=== PATIENT | female | born 1990 | race Asian ===

== ENCOUNTER 2016-06-29 10:09 | Inpatient (IN) | payer MEDICAID ==
[~2016-06-29] VITALS: Ht 160 cm; Wt 54.4 kg
[2016-06-29] MEDS ORDERED: TAPAZOLE5 M1 PO (10:22)
[2016-06-29] MEDS ORDERED: INDERAL10 MG PO (10:22)
[2016-06-29 10:30] VITALS: BP 132/86
[2016-06-29 11:13] LABS: BASOPHILS % (AUTO) 0.5 % (0.0-2.0); LYMPHOCYTES % (AUTO) 13.3 % (20.0-45.0); MEAN CORPUSCULAR HEMOGLOBIN 19.3 PG (27.0-31.0); MEAN CORPUSCULAR HGB CONC 29.9 G/DL (32.0-36.0); MEAN CORPUSCULAR VOLUME 64 FL (80-99); MONOCYTES % (AUTO) 3.5 % (1.0-10.0); NEUTROPHILS % (AUTO) 82.7 % (45.0-75.0); PLATELET COUNT 352 K/UL (150-450); RED BLOOD COUNT 6.38 M/UL (4.20-5.40); RED CELL DISTRIBUTION WIDTH 12.9 % (11.6-14.8); WHITE BLOOD COUNT 9.5 K/UL (4.8-10.8)
[2016-06-29 11:13] LABS: APPEARANCE,URINE CLEAR; KETONES,URINE NEGATIVE (NEGATIVE); LEUKOCYTE ESTERASE ,URINE 1+ (NEGATIVE); NITRITE,URINE NEGATIVE (NEGATIVE); PH,URINE 8 (4.5-8.0); PROTEIN,URINE NEGATIVE (NEGATIVE); UROBILINOGEN,URINE NORMAL MG/DL (0.0-1.0)
[2016-06-29 11:21] LABS: BACTERIA,URINE FEW /HPF; RBC,URINE 0-2 /HPF (0 - 2); SQUAMOUS EPITHELIAL CELL,UR FEW /LPF (NONE/OCC)
[2016-06-29 11:27] LABS: ALANINE AMINOTRANSFERASE 11 U/L (3-33); ALBUMIN/GLOBULIN RATIO 1.3 (1.0-2.7); ANION GAP 18 (5-15); ASPARTATE AMINO TRANSFERASE 14 U/L (5-40); CARBON DIOXIDE 23 mEQ/L (20-30); CHLORIDE 96 mEQ/L (98-107); CREATININE 0.6 mg/dL (0.5-0.9); GLOMERULAR FILTRATION RATE > 60 mL/min (>60); HEMOLYSIS 1; LIPASE 17 U/L (< 60); SODIUM 137 mEQ/L (135-145); TOTAL PROTEIN 7.9 g/dL (6.6-8.7); TROPONIN I < 0.30 ng/mL (<=0.30)
[2016-06-29 11:30] LABS: PROTHROMBIN TIME 10.2 SEC (9.30-11.50)
[2016-06-29 11:38] LABS: CKMB < 1.5 ng/mL (< 3.8); THYROID STIMULATING HORMONE 0.005 uIU/mL (0.300-4.500)
[2016-06-29] MEDS ORDERED: Propranolol 1mg/ml Inj IVP ONE (12:00)
--- NOTE | 2016-06-29 12:18 | Diagnostic Imaging Report ---
Indication: SOB Technique: One view of the chest Comparison: none Findings: Lungs and pleural spaces are clear. Heart size is normal. Impression: No acute process
--- NOTE | 2016-06-29 12:46 | History & Physical ---
History and Physical History & Physicial HP dictated # [id number] ETHEL GARIBAY Jun 29, 2016 12:46
[2016-06-29 12:53] VITALS: BP 113/78
--- NOTE | 2016-06-29 13:24 | Emergency Room Report ---
History of Present Illness General Chief Complaint: General Complaint Source: Patient, Family Member Present Illness HPI Patient present with complaints of chest pain and shortness of breath palpitation sensation since last night Patient has a known thyroid disease with hyperthyroid disease patient is on 2 different medications However reports that since last night was having a palpitation sensation Patient has not had any other procedures performed Reports being diagnosed about 3-4 years ago At this time is asymptomatic while at rest Denies any chest pain currently Denies any vomiting or diarrhea denies any pleurisy denies any recent travel Allergies: Coded Allergies: No Known Allergies (Unverified , 06/29/16) Patient History Past Medical History: see triage record Pertinent Family History: none Last Menstrual Period: 06/06/16 Reviewed Nursing Documentation: PMH: Agreed, PSxH: Agreed Nursing Documentation-PMH Past Medical History: No History, Except For Hx Cardiac Problems: Yes - hyperthyroid Review of Systems All Other Systems: negative except mentioned in HPI Physical Exam Vital Signs Date Time Temp Pulse Resp B/P Pulse Ox O2 Delivery O2 Flow Rate FiO2 06/29/16 10:13 97.2 147 22 162/103 100 Room Air Sp02 EP Interpretation: reviewed, normal General Appearance: well appearing, no apparent distress Head: normocephalic, atraumatic Eyes: bilateral eye EOMI, bilateral eye PERRL ENT: hearing grossly normal, normal pharynx, TMs + canals normal, uvula midline Neck: full range of motion, supple, no meningismus, no bony tend Respiratory: lungs clear, normal breath sounds, no rhonchi, no respiratory distress, no retraction, no accessory muscle use Cardiovascular #1: normal peripheral pulses, no edema, no gallop, no JVD, no murmur, tachycardia Gastrointestinal: normal bowel sounds, non tender, soft, no mass, no organomegaly, non-distended, no guarding, no hernia, no pulsatile mass, no rebound Genitourinary: no CVA tenderness Musculoskeletal: normal inspection Neurologic: oriented x3, responsive, hospitalist III-XII nml as tested, motor strength/ tone normal, sensory intact Psychiatric: mood/affect normal Skin: normal color, no rash, warm/dry, palpation normal Lymphatic: normal inspection, no adenopathy Medical Decision Making Diagnostic Impression: Primary Impression: Thyroid storm ER Course Multiple differentials considered Patient's complex requiring blood work and imaging Consideration for cardiac, thyroid disease considered Patient's a thyroid level is elevated Patient was provided with beta sabine at this time No definitive sign of a full-blown thyroid storm currently however patient, is fairly tachycardic and short of breath and requires admission for further care I do not feel the patient's findings were in line with pulmonary embolism and further CT angio has not been performed in the ER Labs Test 06/29/16 10:30 06/29/16 10:47 White Blood Count 9.5 K/UL (4.8-10.8) Red Blood Count 6.38 M/UL (4.20-5.40) Hemoglobin 12.3 G/DL (12.0-16.0) Hematocrit 41.1 % (37.0-47.0) Mean Corpuscular Volume 64 FL (80-99) Mean Corpuscular Hemoglobin 19.3 PG (27.0-31.0) Mean Corpuscular Hemoglobin Concent 29.9 G/DL (32.0-36.0) Red Cell Distribution Width 12.9 % (11.6-14.8) Platelet Count 352 K/UL (150-450) Mean Platelet Volume 6.0 FL (6.5-10.1) Neutrophils (%) (Auto) 82.7 % (45.0-75.0) Lymphocytes (%) (Auto) 13.3 % (20.0-45.0) Monocytes (%) (Auto) 3.5 % (1.0-10.0) Eosinophils (%) (Auto) 0.0 % (0.0-3.0) Basophils (%) (Auto) 0.5 % (0.0-2.0) Prothrombin Time 10.2 SEC (9.30-11.50) Prothromb Time International Ratio 1.0 (0.9-1.1) Activated Partial Thromboplast Time 27 SEC (23-33) Sodium Level 137 mEQ/L (135-145) Potassium Level 4.0 mEQ/L (3.4-4.9) Chloride Level 96 mEQ/L (98-107) Carbon Dioxide Level 23 mEQ/L (20-30) Anion Gap 18 (5-15) Blood Urea Nitrogen 8 mg/dL (7-23) Creatinine 0.6 mg/dL (0.5-0.9) Estimat Glomerular Filtration Rate > 60 mL/min (>60) Glucose Level 105 mg/dL (74-106) Calcium Level 10.0 mg/dL (8.6-10.2) Total Bilirubin 0.3 mg/dL (0.0-1.2) Aspartate Amino Transf (AST/SGOT) 14 U/L (5-40) Alanine Aminotransferase (ALT/SGPT) 11 U/L (3-33) Alkaline Phosphatase 87 U/L (35-104) Total Creatine Kinase 91 U/L (26-140) Creatine Kinase MB < 1.5 ng/mL (< 3.8) Creatine Kinase MB Relative Index Troponin I < 0.30 ng/mL (<=0.30) Pro-B-Type Natriuretic Peptide 66 pg/mL (0-125) Total Protein 7.9 g/dL (6.6-8.7) Albumin 4.6 g/dL (3.5-5.2) Globulin 3.3 g/dL Albumin/Globulin Ratio 1.3 (1.0-2.7) Lipase 17 U/L (< 60) Thyroid Stimulating Hormone (TSH) 0.005 uIU/mL (0.300-4.500) Free Thyroxine 3.30 ng/dL (0.86-1.85) Urine Color Pale yellow Urine Appearance Clear Urine pH 8 (4.5-8.0) Urine Specific [place] 1.010 (1.005-1.035) Urine Protein Negative (NEGATIVE) Urine Glucose (UA) Negative (NEGATIVE) Urine Ketones Negative (NEGATIVE) Urine Occult Blood Negative (NEGATIVE) Urine Nitrite Negative (NEGATIVE) Urine Bilirubin Negative (NEGATIVE) Urine Urobilinogen Normal MG/DL (0.0-1.0) Urine Leukocyte Esterase 1+ (NEGATIVE) Urine RBC 0-2 /HPF (0 - 2) Urine WBC 2-4 /HPF (0 - 2) Urine Squamous Epithelial Cells Few /LPF (NONE/OCC) Urine Bacteria Few /HPF (NONE) Urine HCG, Qualitative Negative Urine Opiates Screen Negative (NEGATIVE) Urine Barbiturates Screen Negative (NEGATIVE) Phencyclidine (PCP) Screen Negative (NEGATIVE) Urine Amphetamines Screen Negative (NEGATIVE) Urine Benzodiazepines Screen Negative (NEGATIVE) Urine Cocaine Screen Negative (NEGATIVE) Urine Marijuana (THC) Screen Negative (NEGATIVE) EKG Diagnostic Results Rate: tachycardiac Rhythm: other ST Segments: no acute changes Rhythm Strip Diag. Results EP Interpretation: yes Rate: 105 Rhythm: no PVC's, no ectopy, other - sinus tach Chest X-Ray Diagnostic Results EP Interpretation: Yes Findings: no consolidation, no effusion, no pneumothorax Number of Views: 1 Last Vital Signs Date Time Temp Pulse Resp B/P Pulse Ox O2 Delivery O2 Flow Rate FiO2 06/29/16 12:58 97.2 88 17 113/78 100 Room Air Status: improved Disposition: ADMITTED INPATIENT Condition: Serious Referrals: NOT CHOSEN IPA/,REFERRING (PCP) MARY ANNE WYNN D.O. Jun 29, 2016 13:24
[2016-06-29 13:46] VITALS: BP 118/77
[2016-06-29] MEDS: Methimazole 5mg tab ORAL SCH (14:21)
[2016-06-29] MEDS: Propranolol 10mg tab ORAL SCH ×2 (14:22→22:36)
[2016-06-29 16:00] VITALS: BP 113/65
[2016-06-29] MEDS ORDERED: Morphine Sulfate 4mg/ml Inj IVP PRN (17:15)
[2016-06-29] MEDS ORDERED: Morphine Sulfate 2mg/ml Inj IVP PRN (17:15)
--- NOTE | 2016-06-29 19:29 | History and Physical Report ---
DATE OF ADMISSION: 06/29/2016 CHIEF COMPLAINT: Palpitation, chest pain, shortness of breath. HISTORY OF PRESENT ILLNESS: This is a 25-year-old, [place] female, who was diagnosed with hyperthyroidism about three years ago in [facility]. The patient has been in the [place] since May. Today she started having severe palpitations and got short of breath and also she has had some chest pain. She came to the emergency room. She was found to be in sinus tachycardia. Her laboratories were checked and she had free T4 of 3.30 with TSH of 0.005. The patient was diagnosed with hyperparathyroidism and is admitted. PAST MEDICAL HISTORY: Noncontributory except above. MEDICATIONS: The patient is taking Tapazole 5 mg daily as well as Inderal . ALLERGIES: No known drug allergies. SOCIAL HISTORY: The patient lives with family. No history of smoking or alcohol abuse. REVIEW OF SYSTEMS: As above. PHYSICAL EXAMINATION: GENERAL: The patient is a thin female, in no acute distress. VITAL SIGNS: Blood pressure is 136/75, pulse initially was 147 now is in 120, temperature 97.2, respiratory rate 17. HEENT: [place] conjunctivae. Anicteric sclerae. NECK: Supple. LUNGS: Clear to auscultation. HEART: S1 and S2 tachycardic. ABDOMEN: Soft and nontender. EXTREMITIES: No cyanosis or edema. LABORATORY FINDINGS: CBC shows WBC of 9.5, hematocrit 41.1, hemoglobin 12.3, and platelets 352,000. Chemistry panel shows serum sodium of 137, potassium 4, chloride 96, BUN 8, creatinine 0.6, glucose 105. Troponin was negative. ASSESSMENT: This is a 25-year-old female, who was admitted with palpitations, chest pain, dizziness as result of uncontrolled hyperthyroidism. PLAN: The patient will be on Tapazole 20 mg, and inderal 20 mg tid . Once her heart rate is controlled, she can go home on that regimen. Case was discussed with the patient and sister. Mathew Caro M.D. DR: Ryan JOB#: [id number] CC: ESTELA
[2016-06-29 20:00] VITALS: BP 138/83
[2016-06-30 00:08] VITALS: BP 106/67
[2016-06-30 04:30] VITALS: BP 120/72
[2016-06-30] MEDS: Propranolol 10mg tab ORAL SCH (06:12)
[2016-06-30 08:37] VITALS: BP 93/46
[2016-06-30] MEDS: Methimazole 5mg tab ORAL SCH (08:47)
[2016-06-30 11:44] VITALS: BP 103/60
[2016-06-30] MEDS ORDERED: INDERAL10 MG ORAL (11:51)
[2016-06-30] MEDS ORDERED: TAPAZOLE5 MG ORAL (11:51)
--- NOTE | 2016-06-30 12:19 | Consultation ---
Consult Note Assessment/Plan Dc dictated # [id number] ETHEL GARIBAY Jun 30, 2016 12:18
--- NOTE | 2016-07-01 00:48 | Discharge Summary ---
DATE OF ADMISSION: 06/29/2016 DATE OF DISCHARGE: 06/30/2016 CHIEF COMPLAINT: Palpitations and chest pain. HISTORY OF PRESENT ILLNESS: This is a 25-year-old Beninese female, who has a history of hyperthyroidism. The patient was taking the 5 mg Tapazole as well as 10 mg Inderal daily. She was admitted with palpitations and chest pain. Her free T4 was elevated at 3.3, so the patient was diagnosed with thyroid storm and uncontrolled hyperthyroidism. HOSPITAL COURSE: The patient was started on Tapazole 20 mg daily as well as Inderal 20 mg three times a day. Her heart rate got under control. Initially, her blood pressure was 162/103 with a heart of 147. This is when she presented to the emergency room. At the time of discharge, blood pressure was 106/67 with a pulse of 65. The patient was found completely asymptomatic. The patient was sent home in stable condition. DISCHARGE DIAGNOSES: 1. Thyroid storm, uncontrolled hyperthyroidism. 2. Palpitations and chest pain as a result of the above. DISCHARGE MEDICATIONS: The patient was kept on Tapazole 20 mg daily, Inderal 20 mg three times a day and she was supposed to come to office for followup. Mathew Caro M.D. DR: SHANNAN JOB#: [id number] CC:
--- NOTE | 2016-07-01 18:38 | Cardiology Report ---
APPROVED REPORT EKG Measurement Heart [id number] Sinus tachycardia Otherwise normal ECG
== END 2016-06-30 12:50 | disposition home or self-care (01) | DRG 424 ==
LOC: EMR 10:35 → 2E 10:44 → EDBEDREQ 11:49
DX: E05.91 Thyrotoxicosis, unspecified with thyrotoxic crisis or storm (principal); R00.2 Palpitations
CPT/HCPCS: 36415; 71010; 80053; 80300; 81003; 81025; 82550; 82553; 83690; 83880; 84439; 84443; 84484; 85025; 85610; 85730; 87040; 93005

== ENCOUNTER 2016-12-29 02:51 | Emergency (ER) | payer MEDICAID, OTHER ==
[~2016-12-29] VITALS: Ht 160 cm; Wt 52.2 kg
[~2016-12-29 02:51] MED LIST: INDERAL10 MG ORAL; INDERAL10 MG PO; TAPAZOLE5 M1 PO; TAPAZOLE5 MG ORAL
[2016-12-29 03:15] VITALS: BP 129/94
--- NOTE | 2016-12-29 03:16 | Emergency Room Report ---
History of Present Illness General Chief Complaint: Chest Pain Source: Patient Present Illness HPI Is a 26-year-old female with a history of hyperthyroidism. She's taking Tapazole and Inderal. She presents with chief complaint of chest pain and palpation. Onset for last few days. This occur frequently before. No focal deficit. No nausea no vomiting no syncope. Denies any other complaint. Allergies: Coded Allergies: Shrimp (Verified Allergy, Unknown, 06/29/16) Patient History Past Medical History: see triage record, old chart reviewed Past Surgical History: none Pertinent Family History: none Social History: Denies: smoking Last Menstrual Period: 12/25/16 Now: No : 0 Para: 0 Immunizations: other Reviewed Nursing Documentation: PMH: Agreed, PSxH: Agreed Nursing Documentation-PMH Hx Cardiac Problems: No - hyperthyroidism Hx Cancer: No Hx Gastrointestinal Problems: No Hx Neurological Problems: No Review of Systems Eye: Denies: eye pain, blurred vision ENT: Denies: ear pain, nose congestion, throat swelling Respiratory: Denies: cough, shortness of breath Cardiovascular: Reports: palpitations, Denies: chest pain Gastrointestinal: Denies: abdominal pain, diarrhea, nausea, vomiting Musculoskeletal: Denies: back pain, joint pain Skin: Denies: rash Neurological: Denies: headache, numbness Endocrine: Denies: increased thirst, increased urine Hematologic/Lymphatic: Denies: easy bruising All Other Systems: negative except mentioned in HPI Physical Exam Vital Signs Date Time Temp Pulse Resp B/P (MAP) Pulse Ox O2 Delivery O2 Flow Rate FiO2 12/29/16 02:56 98.2 76 15 129/94 100 Room Air vitals normal Sp02 EP Interpretation: reviewed, normal General Appearance: well appearing, no apparent distress, alert Head: normocephalic, atraumatic Eyes: bilateral eye PERRL, bilateral eye EOMI ENT: hearing grossly normal, normal pharynx Neck: full range of motion, supple, no meningismus Respiratory: chest non-tender, lungs clear, normal breath sounds Cardiovascular #1: regular rate, rhythm, no murmur Gastrointestinal: normal bowel sounds, non tender, no mass, no organomegaly, no bruit, non-distended Musculoskeletal: back normal, gait/station normal, normal range of motion Psychiatric: mood/affect normal Skin: warm/dry Medical Decision Making Diagnostic Impression: Primary Impression: Palpitations ER Course Patient with palpitation. Heart rate in the 60s here. No evidence of thyroid storm of toxicity. Most likely psychogenic in nature. We'll discharge home. Lab Results Impression labs unremarkable EKG Diagnostic Results Rate: normal Rhythm: NSR ST Segments: no acute changes Rhythm Strip Diag. Results Rhythm Strip Time: 03:16 EP Interpretation: yes Rate: 60 Rhythm: NSR, no PVC's, no ectopy Last Vital Signs Date Time Temp Pulse Resp B/P (MAP) Pulse Ox O2 Delivery O2 Flow Rate FiO2 12/29/16 02:56 98.2 76 15 129/94 100 Room Air Status: improved Disposition: HOME, SELF-CARE Condition: Stable Referrals: [facility],REFERRING (PCP) Additional Instructions: followup with your DrRichard in 7 days. Return if worse. ANNABELLA COPE M.D. Dec 29, 2016 03:16
[2016-12-29 03:39] LABS: BASOPHILS % (AUTO) 1.2 % (0.0-2.0); EOSINOPHILS % (AUTO) 1.2 % (0.0-3.0); LYMPHOCYTES % (AUTO) 52.6 % (20.0-45.0); MEAN CORPUSCULAR HEMOGLOBIN 20.7 PG (27.0-31.0); MEAN CORPUSCULAR HGB CONC 29.4 G/DL (32.0-36.0); MEAN CORPUSCULAR VOLUME 70 FL (80-99); MEAN PLATELET VOLUME 6.3 FL (6.5-10.1); MONOCYTES % (AUTO) 5.3 % (1.0-10.0); NEUTROPHILS % (AUTO) 39.8 % (45.0-75.0); PLATELET COUNT 331 K/UL (150-450); RED CELL DISTRIBUTION WIDTH 12.6 % (11.6-14.8); WHITE BLOOD COUNT 6.2 K/UL (4.8-10.8)
[2016-12-29 03:48] LABS: APPEARANCE,URINE CLEAR; KETONES,URINE NEGATIVE (NEGATIVE); LEUKOCYTE ESTERASE ,URINE NEGATIVE (NEGATIVE); NITRITE,URINE NEGATIVE (NEGATIVE); PH,URINE 6 (4.5-8.0); PROTEIN,URINE NEGATIVE (NEGATIVE); UROBILINOGEN,URINE NORMAL MG/DL (0.0-1.0)
[2016-12-29 03:56] LABS: ANION GAP 15 (5-15); CALCIUM 9.1 mg/dL (8.6-10.2); CARBON DIOXIDE 24 mEQ/L (20-30); CHLORIDE 99 mEQ/L (98-107); CREATININE 0.8 mg/dL (0.5-0.9); GLOMERULAR FILTRATION RATE > 60 mL/min (>60); HEMOLYSIS 91; POTASSIUM 4.3 mEQ/L (3.4-4.9); SODIUM 138 mEQ/L (135-145)
[2016-12-29 04:03] LABS: RBC,URINE 0-2 /HPF (0 - 2); SQUAMOUS EPITHELIAL CELL,UR FEW /LPF (NONE/OCC); WBC,URINE 0-2 /HPF (0 - 2)
[2016-12-29 04:24] VITALS: BP 124/92
[2016-12-29 04:35] VITALS: BP 124/92
== END 2016-12-29 04:37 | disposition home or self-care (01) ==
LOC: EMR 02:59
DX: R20.2 Paresthesia of skin (principal); R07.9 Chest pain, unspecified; E05.90 Thyrotoxicosis, unspecified without thyrotoxic crisis or storm
CPT/HCPCS: 36415; 80048; 81001; 84439; 84443; 85025; 93005; 99284